=== PATIENT | male | born 1985 | race African-American/Black ===

== ENCOUNTER 2021-05-18 16:30 | Emergency (ER) | payer BC, SELFPAY ==
--- NOTE | ~2021-05-18 | XR_ITS ---
EXAMINATION: XR ankle RT min 3V EXAM DATE: 05/18/2021 16:51 INDICATION: Right ankle pain. No acute injury. Medial malleolar pain. TECHNIQUE: Right ankle frontal, lateral and oblique projections obtained and reviewed. There is no p rior study for comparison. FINDINGS: The right ankle mortise appears intact. There are no acute fractures or dislocations iden tified. There is no subcutaneous gas. The soft tissue is unremarkable. There are no radiopaque fo reign bodies. IMPRESSION: 1. Unremarkable XR ankle RT min 3V exam. Reviewed, dictated and finalized at location A.
[2021-05-18 16:32] VITALS: BP 148/86; PULSE 89; RESP 14; TEMP 36.4; O2SAT 99
--- NOTE | 2021-05-18 17:18 | ED.GENADULT ---
HPI - General Adult General Chief complaint: Extremity Injury, Lower Stated complaint: right leg pain Time Seen by Provider: 05/18/21 16:39 Source: patient Mode of arrival: ambulatory Limitations: no limitations History of Present Illness HPI narrative: Patient presents with chief complaint of right ankle pain over the past week. Patient states he cannot recall a direct mechanism of injury however he was busy running around at a conference 1 week ago and noticed at the in that he began having some right ankle pain. Patient reports decreased ability to invert his ankle due to pain. Patient reports discomfort over the medial malleolus and the dorsal aspect of the foot. Patient reports that he has been wearing an [id number] ankle brace which has not seemed to relieve his symptoms. Patient has history of prior fracture or injuries. Patient denies any other symptoms or concerns. Related Data Allergies Allergy/AdvReac Type Severity Reaction Status Date / Time No Known Allergies Allergy Verified 05/18/21 16:36 Review of Systems Review of Systems: CONSTITUTIONAL: Denies fever, chills, or sweats. EYES: Denies visual changes, redness, or discharge. ENT: Denies rhinorrhea, congestion, sore throat, or otalgia. CARDIOVASCULAR: Denies chest pain, palpitations, or edema. RESPIRATORY: Denies cough or dyspnea. GASTROINTESTINAL: Denies abdominal pain, nausea, vomiting, or diarrhea. GENITOURINARY: Denies dysuria or hematuria. SKIN: Denies rash or itching. MUSCULOSKELETAL: Reports right ankle pain denies back pain, joint pain, or myalgia. NEUROLOGIC: Denies headache, numbness, dizziness, or weakness. PSYCHIATRIC: Denies anxiety or depression. Exam Narrative: GENERAL: Well-appearing, well-nourished, and in no acute distress. HEAD: Normocephalic, atraumatic. EYES: PERRLA and EOMI. CHEST: Clear to auscultation. No respiratory distress. No wheezes rales or rhonchi HEART: Regular rate and rhythm. No murmur heard. Normal peripheral pulses. EXTREMITIES: Tenderness to palpation over right medial malleolus and over the dorsal aspect of the right foot. Swelling trace if present. There is not erythema. Patient declines inversion due to discomfort. Patient able to do some eversion. Patient able to weight-bear on the foot but reports discomfort with plantarflexion. SKIN: Warm, dry, no rash. NEURO: No focal deficits. Alert and oriented x3. PSYCH: Normal mood and affect. Course Vital Signs Vital signs: Vital Signs Temperature 97.5 F L 05/18/21 16:32 Pulse Rate 89 05/18/21 16:32 Respiratory Rate 14 05/18/21 16:32 Blood Pressure 148/86 H 05/18/21 16:32 Pulse Oximetry 99 05/18/21 16:32 Temperature 97.5 F L 05/18/21 16:32 Pulse Rate 89 05/18/21 16:32 Respiratory Rate 14 05/18/21 16:32 Blood Pressure 148/86 H 05/18/21 16:32 Pulse Oximetry 99 05/18/21 16:32 Medical Decision Making MDM Narrative Medical decision making narrative: Discussed the patient needs a follow-up with his primary care computer system specialist for further evaluation and management of sprain. Discussed that if symptoms persist he may need physical therapy or MRI which cannot be ordered from the emergency department. Patient will be given crutches and Richard wrap. Patient will also be prescribed naproxen and cyclobenzaprine. Patient does not have any signs of erythema, increased heat or warmth or any other signs of joint. Patient does not have any calf or thigh pain which would suggest DVT. Vital Signs Vital Signs: Vital Signs Temperature 97.5 F L 05/18/21 16:32 Pulse Rate 89 05/18/21 16:32 Respiratory Rate 14 05/18/21 16:32 Blood Pressure 148/86 H 05/18/21 16:32 Pulse Oximetry 99 05/18/21 16:32 Temperature 97.5 F L 05/18/21 16:32 Pulse Rate 89 05/18/21 16:32 Respiratory Rate 14 05/18/21 16:32 Blood Pressure 148/86 H 05/18/21 16:32 Pulse Oximetry 99 05/18/21 16:32 Imaging Data Radiologist's impression:
[2021-05-18 17:41] VITALS: BP 138/70; PULSE 78; RESP 18; O2SAT 99
== END 2021-05-18 17:43 | disposition home or self-care (01) ==
PROVIDERS: Emergency Provider Emergency Medicine; PCP Nurse Practitioner
DX: S93.401A Sprain of unspecified ligament of right ankle, initial encounter (principal); S96.911A Strain of unspecified muscle and tendon at ankle and foot level, right foot, initial encounter; X58.XXXA Exposure to other specified factors, initial encounter
CPT/HCPCS: 73610; 99283